=== PATIENT | female | born 1995 | race Two or more races ===

== ENCOUNTER 2019-01-12 17:57 | Emergency (ER) | payer OTHER, MEDICAID ==
[~2019-01-12] VITALS: Ht 157.5 cm; Wt 91.0 kg
[2019-01-12] MEDS ORDERED: SODIUM CHLORIDE 0.9% 1,000 ML IV ONE (18:16)
[2019-01-12] MEDS ORDERED: ONDANSETRON HCL 4MG/2ML INJ IV ONE (18:30)
[2019-01-12] MEDS ORDERED: MORPHINE SULFATE 2 MG/ML CPJ (NOT FOR IM USE) IV ONE (18:45)
[2019-01-12 18:53] LABS: BASOPHILS % 0.6 % (0.0-2.0); EOSINOPHILS % 0.9 % (0.0-5.0); HEMATOCRIT. 35.1 % (36.0-48.0); HEMOGLOBIN. 11.5 g/dL (12.0-16.0); LYMPHOCYTES % 18.6 % (20.0-50.0); MEAN CORPUSCULAR HEMOGLOBIN 30.5 pg (28.0-32.0); MEAN CORPUSCULAR VOLUME 92.9 fL (81.0-99.0); MEAN PLATELET VOLUME 8.1 fl (7.4-10.4); MONOCYTES % 6.9 % (2.0-8.0); PLATELET 328 x1000/uL (130-400); RED BLOOD CELL COUNT 3.77 mill/uL (4.2-5.4); RED CELL DISTRIBUTION WIDTH 14.6 % (11.6-14.6)
[2019-01-12 18:57] LABS: CHLORIDE 109 mEq/L (98-107)
[2019-01-12 19:22] LABS: B-HCG QUANTITATIVE 24438 mIU/mL (<3)
[2019-01-12 22:53] LABS: HEMATOCRIT 26.9 % (36.0-48.0); HEMOGLOBIN 9.2 g/dL (12.0-16.0)
[2019-01-13] MEDS ORDERED: METHYLERGONOVINE MALEATE 0.2 MG/ML IM ONE
[2019-01-13] MEDS ORDERED: MISOPROSTOL 200MCG TABLET PO NR (00:15)
[2019-01-13 01:00] VITALS: BP 120/75
== END 2019-01-13 01:00 | disposition home or self-care (01) ==
LOC: ER 17:57
DX: O46.91 Antepartum hemorrhage, unspecified, first trimester (principal); O26.891 Other specified pregnancy related conditions, first trimester; N99.820 Postprocedural hemorrhage of a genitourinary system organ or structure following a genitourinary system procedure; I10 Essential (primary) hypertension; R10.30 Lower abdominal pain, unspecified; R00.0 Tachycardia, unspecified; Z88.6 Allergy status to analgesic agent; Z98.890 Other specified postprocedural states; Z3A.12 12 weeks gestation of pregnancy; Z88.5 Allergy status to narcotic agent
CPT/HCPCS: 36415; 76856; 80053; 84702; 85014; 85018; 85025; 86850; 86900; 86901; 96361; 96372; 96374; 96375; 99284; J2210; J2270; J2405; J7030